=== PATIENT | female | born 1980 | race Caucasian/White ===

== ENCOUNTER 2018-06-14 15:10 | Inpatient (IN) | payer OTHER ==
[~2018-06-14] VITALS: Ht 157.5 cm; Wt 67.1 kg
[2018-06-21] MEDS ORDERED: METOPROLOL SUCC50 MG (15:02)
[2018-06-21] MEDS ORDERED: PRENATAL MULTI1 EAC1 (15:04)
== END 2018-07-07 13:15 | disposition home or self-care (01) | DRG 807 ==
LOC: LDR 07-05 03:26 → OB/GYN 07-05 03:26
PROVIDERS: ADMIT Obstetrics & Gynecology Maternal & Fetal Medicine
PROC: 10E0XZZ Delivery of Products of Conception, External Approach (ICD-10-PCS; principal; 2018-07-05)
PROC: 0KQM0ZZ Repair Perineum Muscle, Open Approach (ICD-10-PCS; 2018-07-05)
PROC: 4A0HXFZ Measurement of Products of Conception, Cardiac Rhythm, External Approach (ICD-10-PCS; 2018-07-05)
DX: O70.1 Second degree perineal laceration during delivery (principal); Z37.0 Single live birth; Z3A.39 39 weeks gestation of pregnancy